=== PATIENT | female | born 1980 | race Caucasian/White ===

== ENCOUNTER → 2024-02-23 12:00 | Outpatient (REF) | payer BC, SELFPAY | LOC: DHSLP 12:00 | PROVIDERS: ATTENDING PHYSICIAN Internal Medicine; FAMILY PHYSICIAN Family Medicine | DX: G47.33 Obstructive sleep apnea (adult) (pediatric) (principal) | CPT/HCPCS: 95800 ==

== ENCOUNTER → 2024-06-29 15:20 | Outpatient (REF) | payer BC, SELFPAY | LOC: HWRCS 15:20 | PROVIDERS: ATTENDING PHYSICIAN Internal Medicine Cardiovascular Disease; FAMILY PHYSICIAN Family Medicine | DX: R06.09 Other forms of dyspnea (principal) | CPT/HCPCS: 93306 ==

== ENCOUNTER 2024-07-05 13:51 | Emergency (ER) | payer BC, SELFPAY ==
[2024-07-05 13:57] VITALS: BP 182/102
[2024-07-05 14:51] LABS: % Eosinophils 1.7 % (0-6); % Immature Granulocytes 0.4 % (0-0.5); % Lymphocytes 22.8 % (20.5-51.1); % Monocytes 5.9 % (1.7-9.3); % Neutrophils 68.2 % (42.2-75.2); Absolute Basophils 0.1 10^3/uL (0-0.2); Absolute Eosinophils 0.1 10^3/uL (0-0.7); Absolute Lymphocytes 1.9 10^3/uL (1.2-3.4); Absolute Monocytes 0.5 10^3/uL (0.1-0.6); Absolute Neutrophils 5.6 10^3/uL (1.4-6.5); Hematocrit 36.4 % (37.0-47.0); Hemoglobin 12.6 g/dL (12.0-16.0); Mean Corp Hgb Conc. 34.6 g/dL (33.0-37.0); Mean Corpuscular Hgb 29.3 pg (27.0-31.0); Mean Corpuscular Volume 84.7 fL (81.0-99.0); Mean Platelet Volume 8.7 fL (7.4-10.4); Nucleated Red Blood Cells % 0 %; Platelet Count 295 10^3/uL (130-400); Red Cell Dist. Width 13.4 % (11.5-14.5); White Blood Cell Count 8.1 10^3/uL (4.8-10.8)
[2024-07-05 15:04] LABS: ALT (SGPT) 32 U/L (0-35); AST (SGOT) 29 U/L (14-36); Albumin 4.4 g/dl (3.5-5.0); Alkaline Phosphatase 55 U/L (38-126); Blood Urea Nitrogen 18 mg/dl (7-17); Calcium 9.4 mg/dl (8.4-10.2); Carbon Dioxide 22 mmol/L (22-30); Chloride 104 mmol/L (98-107); Glucose 109 mg/dl (70-99); Potassium 3.9 mmol/L (3.5-5.1); Sodium 138 mmol/L (135-145); Total Bilirubin 0.3 mg/dl (0.2-1.3); Total Protein 6.8 g/dl (6.3-8.2); eGFR > 60.00
[2024-07-05 15:18] LABS: HCG, Serum Qualitative Screen Negative
--- NOTE | 2024-07-05 17:00 | ED.GENMED ---
History of Present Illness
General
Chief Complaint: Eye Problems
Time Seen by Provider: 07/05/24 14:11
History of Present Illness
History of Present Illness:
44-year-old female with medical history of hypertension and GERD presents to the emergency department for evaluation of intermittent visual symptoms predominantly in the left eye for the past several months. States that it feels as though a 'veil'
comes down over her eye on occasion. She also has left eye discomfort. 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 She denies
any dizziness or gait instability. Denies any speech difficulty or extremity weakness. Does note that the symptoms started in a similar time as being placed on lisdexamfetamine but she does not know which of these began first. No urinary
incontinence
Past History
Past History
ED Past Medical History: HTN, Psychiatric and Other
ED Past Surgical History: None
Social History
Tobacco: Non-smoker
Alcohol: Occasional
Personal: Single
Living: alone
Employment: Employed
Family History
Family History: Hypertension
Review of Systems
Review of Systems
Allergies reviewed?: Yes
All Other Systems: ROS reviewed and negative except as documented in HPI and ROS
Phy Exam
Physical Exam
Physical Exam:
GEN: Well appearing, NAD, WDWN
HEENT: Oral mucosa moist, no scleral icterus, no nasal congestion
Cardiac: Regular rate and rhythm, no murmurs
Lung: No respiratory distress, no tachypnea
MSK: No gross deformity or injuries
Skin: Good color, no pallor or jaundice, no rashes
Neuro: AO x3; CN II-XII grossly intact. BUE strength 5/5 in all brewer, sensation intact and symmetric. BLE strength 5/5 in all brewer, sensation intact and symmetric
Psych: Calm, cooperative
Course
Orders/Labs/Results
Orders:
Orders
07/05/24 14:33
CT Head & Neck Angio W/wo IV Urgent
Comment:
Reason For Exam: amaurosis fugax
Complete Blood Count/With Diff Urgent
Comprehensive Metabolic Panel Urgent
HCG, Serum Qualitative Screen Urgent
07/05/24 14:34
Test Result ONCE
07/05/24 14:40
Add On- LAB Urgent
Tests Added?: hcg qual
Abnormal Lab Results
07/05/24
14:33
Hct 36.4 L %
(37.0-47.0)
BUN 18 H mg/dl
(7-17)
Glucose 109 H mg/dl
(70-99)
07/05/24 14:33
07/05/24 14:33
Vital Signs
Initial and Last Documented VS:
Initial Vital Signs
Temp Pulse Resp BP Pulse Ox
98.1 F 84 18 182/102 99
07/05/24 13:57 07/05/24 13:57 07/05/24 13:57 07/05/24 13:57 07/05/24 13:57
Last Documented Vital Signs
Temp Pulse Resp BP Pulse Ox
98.1 F 80 18 170/78 99
07/05/24 13:57 07/05/24 17:11 07/05/24 17:11 07/05/24 17:11 07/05/24 17:11
MDM/Problems Addressed
MDM/Problems Addressed:
Discussed the case with neurology, at this time the concerns for idiopathic intracranial hypertension or other mass lesion causing increased ICP warrant further workup however the symptoms have been ongoing for several months and she has no vision
loss at this time, documented 20/30 vision bilaterally in the [facility] office earlier today. Neurology recommended a CT angiogram to evaluate for vascular pathology in the setting of possible amaurosis fugax. I did also discuss the
possibility of a lumbar puncture with the patient however she declines at this time would prefer this to be done at a later point which is not unreasonable. Will write orders for outpatient lumbar puncture for opening pressure to be done on a
routine basis, I did communicate the ER evaluation to the patient's primary care physician and recommend outpatient MRI for further evaluation as well. Patient advised to return if she has any persistent vision loss
*Critical Care Note
Total Time (30-74mins, 75-104mins- exclusive of procedures): Not Applicable
ED Attending Note
-
Portions of this chart may have been created with voice recognition software.� Occasional wrong word or��sound alike� substitutions may have occurred due to the inherent limitations of voice recognition software.
Discharge Plan
Departure
Patient Disposition: Home (Routine Discharge)
Date of Disposition: 07/05/24
Time of Disposition: 17:00
Patient with high blood pressure during this ER visit?: No
Discharge Problem:
Pseudopapilledema of both optic discs
Instructions: Idiopathic Intracranial Hypertension (DC)
Prescriptions:
No Action
lisinopril 20 MG tablet
20 mg PO DAILY
citalopram 20 MG tablet
20 mg PO DAILY
metoprolol tartrate 50 MG tablet
50 mg PO DAILY
sucralfate [Carafate] 1 GM/10 ML suspension
1 gm PO QIDPRN PRN (Reason: heartburn) Qty: 480 0RF
pantoprazole 40 MG tablet,delayed release (DR/EC)
40 mg PO DAILY Qty: 14 0RF
Referrals:
Kat Liu DO [Family Provider] -
Donaldo Ceron MD [Active] - Call in 1-3 days for appt
Activity Restrictions/Additional Instructions:
You will need further testing to determine the cause of your vision abnormalities
Your primary doctor should send you for a brain MRI
Please call to schedule an appointment with the interventional radiology department to schedule your lumbar puncture
Follow up with neurology once the MRI and lumbar puncture are completed
Interventions
Interventions:
*General Assessment Last Done: 07/05/24 14:26
ED- Fall Risk Assessment Last Done: 07/05/24 14:26
*Nursing Disposition Last Done: 07/05/24 17:13
Discharge Date and Time
Discharge Date/Time: 07/05/24 17:36
Print Language: SAUDI ARABIAN
[2024-07-05 17:11] VITALS: BP 170/78
== END 2024-07-05 17:36 | disposition home or self-care (01) ==
LOC: EMR 13:51
PROVIDERS: Physician Assistant; EMERGENCY PHYSICIAN Emergency Medicine; FAMILY PHYSICIAN Family Medicine
DX: H47.333 Pseudopapilledema of optic disc, bilateral (principal); I10 Essential (primary) hypertension; K21.9 Gastro-esophageal reflux disease without esophagitis
CPT/HCPCS: 99284; 70496; 70498; 80053; 84703; 85025; Q9967

== ENCOUNTER → 2024-08-31 12:03 | Outpatient (REF) | payer BC, SELFPAY ==
[2024-08-31 12:50] VITALS: BP 145/79; BP_SYST 70
[2024-08-31 12:54] LABS: PT 12.5 Sec (11.4-14.6)
[2024-08-31 12:55] LABS: APTT 26.9 Sec (23.4-35.0)
[2024-08-31 13:02] LABS: % Basophils 0.9 % (0-2); % Eosinophils 1.7 % (0-6); % Immature Granulocytes 0.5 % (0-0.5); % Lymphocytes 18.4 % (20.5-51.1); % Monocytes 9.7 % (1.7-9.3); % Neutrophils 68.8 % (42.2-75.2); Absolute Basophils 0.1 10^3/uL (0-0.2); Absolute Eosinophils 0.1 10^3/uL (0-0.7); Absolute Lymphocytes 1.4 10^3/uL (1.2-3.4); Absolute Monocytes 0.8 10^3/uL (0.1-0.6); Absolute Neutrophils 5.3 10^3/uL (1.4-6.5); Hematocrit 36.8 % (37.0-47.0); Hemoglobin 12.6 g/dL (12.0-16.0); Mean Corp Hgb Conc. 34.2 g/dL (33.0-37.0); Mean Corpuscular Hgb 29.3 pg (27.0-31.0); Mean Corpuscular Volume 85.6 fL (81.0-99.0); Mean Platelet Volume 8.6 fL (7.4-10.4); Nucleated Red Blood Cells % 0 %; Platelet Count 319 10^3/uL (130-400); Red Cell Dist. Width 14.6 % (11.5-14.5); White Blood Cell Count 7.8 10^3/uL (4.8-10.8)
[2024-08-31 13:55] LABS: Blood Urea Nitrogen 16 mg/dl (7-17); Carbon Dioxide 17 mmol/L (22-30); Chloride 109 mmol/L (98-107); Glucose 76 mg/dl (70-99); Potassium 3.5 mmol/L (3.5-5.1); Sodium 139 mmol/L (135-145); eGFR > 60.00
[2024-08-31 14:29] VITALS: BP 134/72
[2024-08-31 15:28] LABS: Spinal Fluid Glucose 51 mg/dl (40-70); Spinal Fluid Protein 64 mg/dl (12-60)
[2024-08-31 15:30] LABS: CSF Clarity Clear; CSF Color Colorless; CSF Tube # 4; Red Cell Count/CSF 1 mm^3; White Cell Count/CSF 1 mm^3 (0-5)
[2024-09-03 23:38] LABS: CSF VDRL (T. pallidum) Non Reactive (Non Reactive)
[2024-09-05 14:50] LABS: Lyme Disease DNA by PCR Not Detected; Lyme Source CSF
== END ==
LOC: RADI 12:03
PROVIDERS: ATTENDING PHYSICIAN Ophthalmology Neuro-ophthalmology
DX: H47.10 Unspecified papilledema (principal)
CPT/HCPCS: 36415; 62328; 80048; 82945; 84157; 85025; 85610; 85730; 86592; 87015; 87070; 87102; 87116; 87205; 87206; 87252; 87476; 88108; 89051

== ENCOUNTER → 2025-04-13 14:40 | Outpatient (REF) | payer BC, SELFPAY | LOC: EMG 14:40 | PROVIDERS: ATTENDING PHYSICIAN Orthopaedic Surgery Hand Surgery; FAMILY PHYSICIAN Family Medicine | DX: M79.642 Pain in left hand (principal); M79.641 Pain in right hand | CPT/HCPCS: 95886; 95911 ==